=== PATIENT | female | born 1960 | race Two or more races ===

== ENCOUNTER 2017-06-26 09:01 | Emergency (ER) | payer OTHER ==
[~2017-06-26] VITALS: Ht 157.5 cm; Wt 63.5 kg
--- NOTE | 2017-06-26 08:45 | Emergency Room Report ---
History of Present Illness General Source: Patient Present Illness HPI 47YOF with known seizures, compliant on daily Keppra, took today. Patient's daughter states that she only takes it once a day, concerned that the [place] since [place] from [place] might not be: "Real". Patient is his daughter states that she's had multiple tests including CAT scan that "don't show why she's having seizures." States no one has explained to her mother Y. she has seizures. States that CAT scan was normal before. Has a primary care and neurology followup here. It was no trauma after witnessed seizure today Denies urinary incontinence tongue biting Allergies: Coded Allergies: No Known Allergies (Unverified , 06/26/17) Patient History Past Medical History: none, seizures Past Surgical History: none Pertinent Family History: none Social History: Denies: smoking, alcohol use, drug use Now: No Immunizations: UTD Review of Systems All Other Systems: negative except mentioned in HPI Physical Exam Sp02 EP Interpretation: reviewed, normal General Appearance: normal inspection, well appearing, no apparent distress, alert, GCS 15, non-toxic Head: normocephalic, atraumatic Eyes: bilateral eye PERRL, bilateral eye EOMI ENT: normal ENT inspection, hearing grossly normal, normal pharynx, no angioedema, normal voice, TMs + canals normal, uvula midline, moist mucus membranes Neck: normal inspection, full range of motion, supple, thyroid normal, no meningismus, no bony tend Respiratory: normal inspection, lungs clear, normal breath sounds, no rhonchi, no respiratory distress, no retraction, no accessory muscle use, no wheezing, speaking full sentences Cardiovascular #1: regular rate, rhythm, no edema, no JVD, normal capillary refill Gastrointestinal: normal inspection, normal bowel sounds, non tender, soft, no mass, no peritonitis, non-distended, no guarding, no hernia, no pulsatile mass Genitourinary: no CVA tenderness Musculoskeletal: normal inspection, back normal, normal range of motion, no calf tenderness, pelvis stable, Jerry's Sign negative Neurologic: normal inspection, alert, oriented x3, responsive, cotton grader III-XII nml as tested, motor strength/tone normal, cerebellar normal, normal gait, speech normal Psychiatric: normal inspection, judgement/insight normal, mood/affect normal, no suicidal/homicidal ideation, no delusions Skin: normal inspection, normal color, no rash Lymphatic: normal inspection, no adenopathy Medical Decision Making Diagnostic Impression: Primary Impression: Seizure disorder ER Course Vital signs stable, afebrile Atraumatic. No seizure additionally in ER after 2 hours of observation Patient complain I Keppra, no level to check After patient concerns, will prescribe Keppra here i also recommended that she take it twice a day but that she needs followup with neurology in one week max ER course: Patient has remained stable during ED stay. Disposition: Patient is to be discharged to home. Prescriptions given are keppra Patient is instructed to follow up with their primary care doctor within 5 days. Strict return precautions discussed with patient such as fever, chills, worsening/severe pain, nausea, vomiting, which may indicate severe illness. Patient verbalizes understanding and agrees with plan. Please note that this Emergency Department Report was dictated using i.Meterdrafter electrical technology software, occasionally this can lead to erroneous entry secondary to interpretation by the dictation equipment Rhythm Strip Diag. Results EP Interpretation: yes Rate: 56 Rhythm: NSR, no PVC's, no ectopy Status: improved Disposition: HOME, SELF-CARE Scripts Levetiracetam (KEPPRA) 500 Mg Tablet 500 MG ORAL EVERY 12 HOURS for 30 Days, #60 TAB 0 Refills Prov: RENATA CAMACHO M.D. 06/26/17 RENATA CAMACHO M.D. Jun 26, 2017 08:45
[2017-06-26 09:07] VITALS: BP 152/77
[2017-06-26] MEDS ORDERED: KEPPRA500 M4 ORAL ×2 (09:49→11:26)
[2017-06-26 09:59] VITALS: BP 149/76
[2017-06-26 11:37] VITALS: BP 151/80
--- NOTE | 2017-06-30 17:03 | Cardiology Report ---
APPROVED REPORT EKG Measurement Heart [id number] Normal sinus rhythm Normal ECG
== END 2017-06-26 11:42 | disposition home or self-care (01) ==
LOC: EDBD 09:01 → EMR 09:21
DX: G40.909 Epilepsy, unspecified, not intractable, without status epilepticus (principal); Z79.899 Other long term (current) drug therapy
CPT/HCPCS: 93005; 99284

== ENCOUNTER 2018-12-03 21:30 | Emergency (ER) | payer MEDICAID ==
[~2018-12-03] VITALS: Ht 165.1 cm; Wt 63.5 kg
[~2018-12-03 21:30] MED LIST: KEPPRA500 M4 ORAL
--- NOTE | 2018-12-03 21:35 | NUR ---
ED Nurse Note: pt brought in by [facility] from home c/c chest pain x 1 day midsternal area, pt reports it feels like throbbing sensation, pressure like pain, radiating to left right , pt reports nausea and vomiting at home, reports weakness as well. pt states she recently changed her medication 2 days ago. pt AA&ox4, gcs=15, skin warm and dry, resp even and unlabored on RA, -n/v/d at this time, vss, NSR on court recording monitor will cont monitor. safety precautions in place.
[2018-12-03] MEDS ORDERED: VIMPAT10 MG/1 ML PO (21:41)
[2018-12-03 21:51] VITALS: BP 165/85
[2018-12-03 22:08] LABS: EOSINOPHILS % (AUTO) 0.2 % (0.0-3.0); HEMATOCRIT 38.2 % (37.0-47.0); HEMOGLOBIN 12.4 G/DL (12.0-16.0); LYMPHOCYTES % (AUTO) 21.6 % (20.0-45.0); MEAN CORPUSCULAR VOLUME 91 FL (80-99); MONOCYTES % (AUTO) 7.6 % (1.0-10.0); NEUTROPHILS % (AUTO) 69.6 % (45.0-75.0); PLATELET COUNT 319 K/UL (150-450); RED CELL DISTRIBUTION WIDTH 12.6 % (11.6-14.8); WHITE BLOOD COUNT 7.5 K/UL (4.8-10.8)
[2018-12-03 22:21] LABS: ANION GAP 8 mmol/L (5-15); BLOOD UREA NITROGEN 14 mg/dL (7-18); CALCIUM 9.1 MG/DL (8.5-10.1); CARBON DIOXIDE 29 MMOL/L (21-32); CHLORIDE 104 MMOL/L (98-107); CREATININE 0.8 MG/DL (0.55-1.30); SODIUM 141 MMOL/L (136-145)
[2018-12-03 22:34] LABS: ALANINE AMINOTRANSFERASE 18 U/L (12-78); ALBUMIN 3.8 G/DL (3.4-5.0); ALBUMIN/GLOBULIN RATIO 1.1 (1.0-2.7); ALKALINE PHOSPHATASE 98 U/L (46-116); ASPARTATE AMINO TRANSFERASE 30 U/L (15-37); BILIRUBIN,TOTAL 0.5 MG/DL (0.2-1.0); CKMB 1.5 NG/ML (0.0-3.6); CREATINE KINASE 172 U/L (26-308)
[2018-12-03 22:41] LABS: APPEARANCE,URINE CLEAR; BILIRUBIN, URINE NEGATIVE (NEGATIVE); GLUCOSE, URINE (UA) NEGATIVE (NEGATIVE); KETONES,URINE 1+ (NEGATIVE); LEUKOCYTE ESTERASE ,URINE 1+ (NEGATIVE); NITRITE,URINE NEGATIVE (NEGATIVE); PH,URINE 7 (4.5-8.0); PROTEIN,URINE 1+ (NEGATIVE); UROBILINOGEN,URINE 4 MG/DL (0.0-1.0)
[2018-12-03 22:42] LABS: COLOR,URINE YELLOW
[2018-12-03 22:51] VITALS: BP 154/84
[2018-12-03] MEDS ORDERED: Aspirin Baby 81mg ORAL ONE (23:00)
--- NOTE | 2018-12-03 23:00 | NUR ---
ED Nurse Note: pt provided w/ extra blanket, safety precautions in place, vss, NSR on hall monitor, will cont monitor.
--- NOTE | 2018-12-04 00:24 | Emergency Room Report ---
History of Present Illness General Chief Complaint: Chest Pain Source: Patient, EMS Present Illness HPI Patient presents with complaints of chest pain midsternal reports that off-and- on she has been having this discomfort for the past several days however About an hour prior to arrival she was having increased discomfort Denies any vomiting Denies any shortness of breath denies any abdominal pain she has also been feeling generally weak and malaised denies any neck pain or photophobia Denies any obvious cough or recent travel Allergies: Coded Allergies: No Known Allergies (Unverified , 06/26/17) Patient History Past Medical History: see triage record Pertinent Family History: none Reviewed Nursing Documentation: PMH: Agreed; PSxH: Agreed Nursing Documentation-PMH Hx Hypertension: Yes Hx Seizures: Yes Review of Systems All Other Systems: negative except mentioned in HPI Physical Exam Vital Signs Date Time Temp Pulse Resp B/P (MAP) Pulse Ox O2 Delivery O2 Flow Rate FiO2 12/03/18 21:34 99.3 76 16 175/92 (119) 97 Room Air Sp02 EP Interpretation: reviewed, normal General Appearance: well appearing, no apparent distress Head: normocephalic, atraumatic Eyes: bilateral eye PERRL, bilateral eye EOMI ENT: hearing grossly normal, normal pharynx, TMs + canals normal, uvula midline Neck: full range of motion, supple, no meningismus, no bony tend Respiratory: lungs clear, normal breath sounds, no rhonchi, no respiratory distress, no retraction, no accessory muscle use Cardiovascular #1: normal peripheral pulses, regular rate, rhythm, no edema, no gallop, no JVD, no murmur Gastrointestinal: normal bowel sounds, non tender, soft, no mass, no organomegaly, non-distended, no guarding, no hernia, no pulsatile mass, no rebound Genitourinary: no CVA tenderness Musculoskeletal: normal inspection Neurologic: oriented x3, responsive, wringer operator III-XII nml as tested, motor strength/ tone normal, sensory intact Psychiatric: mood/affect normal Skin: no rash Lymphatic: normal inspection, no adenopathy Medical Decision Making Diagnostic Impression: Primary Impression: ACS (acute coronary syndrome) ER Course Patient is a fairly complex patient with multiple differential to consideration including but not limited to cardiac cardiopulmonary and vascular emergencies Patient also reports previous history of seizure activity She was taking a medication sounds to be possibly vinpat, however has been off that medication for several days Reports having seizure as well after this Patient's initial work-up including cardiac enzymes are negative continues to do well and is stable for transfer secondary to insurance purposes Labs Test 12/03/18 21:43 12/03/18 22:30 White Blood Count 7.5 K/UL (4.8-10.8) Red Blood Count 4.20 M/UL (4.20-5.40) Hemoglobin 12.4 G/DL (12.0-16.0) Hematocrit 38.2 % (37.0-47.0) Mean Corpuscular Volume 91 FL (80-99) Mean Corpuscular Hemoglobin 29.4 PG (27.0-31.0) Mean Corpuscular Hemoglobin Concent 32.4 G/DL (32.0-36.0) Red Cell Distribution Width 12.6 % (11.6-14.8) Platelet Count 319 K/UL (150-450) Mean Platelet Volume 5.7 FL (6.5-10.1) Neutrophils (%) (Auto) 69.6 % (45.0-75.0) Lymphocytes (%) (Auto) 21.6 % (20.0-45.0) Monocytes (%) (Auto) 7.6 % (1.0-10.0) Eosinophils (%) (Auto) 0.2 % (0.0-3.0) Basophils (%) (Auto) 1.0 % (0.0-2.0) Sodium Level 141 MMOL/L (136-145) Potassium Level 4.0 MMOL/L (3.5-5.1) Chloride Level 104 MMOL/L (98-107) Carbon Dioxide Level 29 MMOL/L (21-32) Anion Gap 8 mmol/L (5-15) Blood Urea Nitrogen 14 mg/dL (7-18) Creatinine 0.8 MG/DL (0.55-1.30) Estimat Glomerular Filtration Rate > 60 mL/min (>60) Glucose Level 110 MG/DL (74-106) Calcium Level 9.1 MG/DL (8.5-10.1) Total Bilirubin 0.5 MG/DL (0.2-1.0) Aspartate Amino Transf (AST/SGOT) 30 U/L (15-37) Alanine Aminotransferase (ALT/SGPT) 18 U/L (12-78) Alkaline Phosphatase 98 U/L (46-116) Total Creatine Kinase 172 U/L (26-308) Creatine Kinase MB 1.5 NG/ML (0.0-3.6) Creatine Kinase MB Relative Index 0.8 Troponin I 0.000 ng/mL (0.000-0.056) Total Protein 7.4 G/DL (6.4-8.2) Albumin 3.8 G/DL (3.4-5.0) Globulin 3.6 g/dL Albumin/Globulin Ratio 1.1 (1.0-2.7) Lipase 361 U/L (73-393) Urine Color Yellow Urine Appearance Clear Urine pH 7 (4.5-8.0) Urine Specific [place] 1.015 (1.005-1.035) Urine Protein 1+ (NEGATIVE) Urine Glucose (UA) Negative (NEGATIVE) Urine Ketones 1+ (NEGATIVE) Urine Blood 3+ (NEGATIVE) Urine Nitrite Negative (NEGATIVE) Urine Bilirubin Negative (NEGATIVE) Urine Urobilinogen 4 MG/DL (0.0-1.0) Urine Leukocyte Esterase 1+ (NEGATIVE) Urine RBC 2-4 /HPF (0 - 2) Urine WBC 0-2 /HPF (0 - 2) Urine Squamous Epithelial Cells Few /LPF (NONE/OCC) Urine Amorphous Sediment Moderate /LPF (NONE) Urine Bacteria Few /HPF (NONE) Urine Opiates Screen Negative (NEGATIVE) Urine Barbiturates Screen Negative (NEGATIVE) Phencyclidine (PCP) Screen Negative (NEGATIVE) Urine Amphetamines Screen Negative (NEGATIVE) Urine Benzodiazepines Screen Negative (NEGATIVE) Urine Cocaine Screen Negative (NEGATIVE) Urine Marijuana (THC) Screen Negative (NEGATIVE) EKG Diagnostic Results Rate: normal Rhythm: NSR ST Segments: no acute changes Rhythm Strip Diag. Results EP Interpretation: yes Rate: 66 Rhythm: NSR, no PVC's, no ectopy Chest X-Ray Diagnostic Results Chest X-Ray Diagnostic Results : Chest X-Ray Ordered: Yes # of Views/Limited/Complete: 1 View Indication: Chest Pain EP Interpretation: Yes Interpretation: no consolidation, no effusion, no pneumothorax Impression: No acute disease Electronically Signed by: Julieth Gregory DO Last Vital Signs Date Time Temp Pulse Resp B/P (MAP) Pulse Ox O2 Delivery O2 Flow Rate FiO2 12/03/18 22:51 99.4 68 16 154/84 97 Room Air Status: improved Disposition: XFER SHT-TRM HOSP Condition: Improved Referrals: NOT CHOSEN IPA/,REFERRING (PCP) Julieth Gregory DO Dec 04, 2018 00:24
[2018-12-04 00:51] VITALS: BP 125/76
--- NOTE | 2018-12-04 01:00 | NUR ---
ED Nurse Note: PT SLEEPING AT THIS TIME, VSS, NO SX DISTRESS WILL CONT MONITOR.
--- NOTE | 2018-12-04 01:23 | NUR ---
ED Nurse Note: report given to CRISTIAN Stanton from [facility] pending xfr.
--- NOTE | 2018-12-04 01:44 | NUR ---
ED Nurse Note: ambulance at the bedside, ALS transport, pt vss, resp even and unlabored on RA, sinus karen on traffic monitor specialist, iv intact and patent, care endorsed to ambulance staff.
--- NOTE | 2018-12-04 01:44 | NUR ---
ED Nurse Note: SUMMARY OF CARE PROVIDED, ALL BELONGINGS SENT W/ PT.
[2018-12-04 01:45] VITALS: BP 140/85
--- NOTE | 2018-12-04 11:57 | Diagnostic Imaging Report ---
Indication: Chest pain Comparison: None A single view chest radiograph was obtained. Findings: Cardiomediastinal appearance is within normal limits for age. The lungs are clear. Pulmonary vascularity is appropriate. The diaphragmatic contour is smooth and costophrenic angles are sharp. No pleural effusions are identified. The bones are unremarkable. Impression: No acute findings
--- NOTE | 2018-12-05 16:02 | Cardiology Report ---
APPROVED REPORT EKG Measurement Heart [id number] Normal sinus rhythm Normal ECG
== END 2018-12-04 01:45 | disposition short-term general hospital (02) ==
LOC: EDBD 21:30 → EMR 21:43
DX: I24.9 Acute ischemic heart disease, unspecified (principal); I10 Essential (primary) hypertension
CPT/HCPCS: 36415; 71045; 80053; 80307; 81003; 82550; 82553; 83690; 84484; 85025; 93005; 96360; 99284; J7040

== ENCOUNTER 2020-01-12 11:59 | Emergency (ER) | payer MEDICAID ==
[~2020-01-12] VITALS: Ht 167.6 cm; Wt 59.0 kg
[~2020-01-12 11:59] MED LIST changes: -Acetaminophen 500mg (ES) tab ORAL ONE
[2020-01-12] MEDS ORDERED: levETIRAcetam 1,000mg/NS100ml 100 ML IVPB ONE (12:00)
--- NOTE | 2020-01-12 12:11 | Emergency Room Report ---
History of Present Illness General Chief Complaint: Seizure Source: Patient, EMS Present Illness HPI Patient is a 49-year-old female past medical history of seizure disorder not on any medications who was brought in by EMS from a local [employer] after having a seizure. Patient was accompanied by her friend states that she caught her and denies any trauma. Patient states that she does not know why she is here. She states that her last seizure was a long time ago. Patient is very preoccupied about her cell phone and we told her that her friend has it for EMS. Patient denies any headache, chest pain or shortness of breath. She denies any abdominal pain dysuria or hematuria. Patient appears very anxious. Allergies: Coded Allergies: No Known Allergies (Unverified , 01/12/20) COVID-19 Screening Contact w/high risk pt: No Experienced COVID-19 symptoms?: No COVID-19 Testing performed EPIC RADIANT ANALYST: No Patient History Now: No Reviewed Nursing Documentation: PMH: Agreed; PSxH: Agreed Nursing Documentation-PMH Past Medical History: No History, Except For Hx Seizures: Yes Review of Systems All Other Systems: negative except mentioned in HPI Physical Exam Vital Signs Date Time Temp Pulse Resp B/P (MAP) Pulse Ox O2 Delivery O2 Flow Rate FiO2 01/12/20 11:53 98.1 140 20 137/80 (99) 97 Room Air Sp02 EP Interpretation: reviewed, normal General Appearance: no apparent distress, alert, GCS 15, non-toxic Head: normocephalic, atraumatic Eyes: bilateral eye normal inspection, bilateral eye PERRL ENT: hearing grossly normal, normal pharynx, no angioedema, normal voice Neck: full range of motion, supple/symm/no masses Respiratory: chest non-tender, lungs clear, normal breath sounds, speaking full sentences Cardiovascular #1: tachycardia Gastrointestinal: normal bowel sounds, non tender, soft, non-distended, no guarding, no rebound Rectal: deferred Genitourinary: no CVA tenderness Musculoskeletal: normal inspection, normal range of motion, no calf tenderness Neurologic: napkin machine operator III-XII nml as tested, oriented x3 Psychiatric: no suicidal/homicidal ideation, anxious Skin: no rash Lymphatic: no adenopathy Medical Decision Making Diagnostic Impression: Primary Impression: Seizure disorder ER Course Patient presents after seizure. Patient has history of seizure disorder but is not on any medication. Patient given 1 g of IV Keppra and 1 L of IV fluids. Patient is awake alert and oriented. She is ambulating without difficulty. Her heart rate has improved and is currently in the 80s. Patient will be discharged with a prescription for Keppra 500 mg p.o. twice daily for 1 month. I have advised her to follow-up with a neurologist and told her that she cannot drive until she is cleared by a neurologist. DMV reporting form has been filled out. After discussing risks and benefits of further diagnostics, treatment plans, as well as indications for and risks of admission, the patient is agreeable to being discharged home. I have explained that their evaluation and treatment in the emergency department today is an important step towards them achieving better health but that their evaluation today is not intended to replace further evaluation and treatment by a physician in their local clinic. I have explained that while the current findings suggest no immediate life threatening emergency they will require further evaluation and treatment by a physician of their choice in their area. They understand that it will be necessary for them to review the final reports of their ED visit with their clinic physician. We have reviewed indications for return to the Emergency Department. I have explained that additional time may need to pass and/or additional testing as an outpatient may be necessary before a definitive diagnosis can be made. They tell me they are willing to follow up as instructed within the timeframe I recommend. They appear to understand what we discussed. Additionally they understand that if they are unable to be seen by an outpatient physician they are welcome, and in fact should, return to the Emergency Department for a repeat evaluation. The patient is stable at time of discharge. EKG Diagnostic Results EKG Time: 12:05 EP Interpretation: Kat Hickey MD Rate: tachycardiac - 107 bpm Rhythm: other - Sinus tachycardia ST Segments: no acute changes ASA given to the pt in ED: No Rhythm Strip Diag. Results Rhythm Strip Time: 12:10 EP Interpretation: yes - Kat Hickey MD Rate: 110 bpm Rhythm: no PVC's, no ectopy, other - Sinus tachycardia Last Vital Signs Date Time Temp Pulse Resp B/P (MAP) Pulse Ox O2 Delivery O2 Flow Rate FiO2 01/12/20 11:53 98.1 140 20 137/80 (99) 97 Room Air Disposition: HOME, SELF-CARE Condition: Stable Scripts Levetiracetam (KEPPRA) 500 Mg Tablet 500 MG ORAL EVERY 12 HOURS, #60 TAB 0 Refills Prov: Kat Hickey M.D. 01/12/20 Additional Instructions: The patient was provided with discharge instructions, notified to follow-up with a primary care doctor and or specialist in the next 24-48 hours, and to return to the ED if they have worsening of their symptoms. Please note that this report is being documented using [employer] technology. This can lead to erroneous entry secondary to incorrect interpretation by the dictating instrument. Kat Hickey M.D. Jan 12, 2020 12:11
[2020-01-12 12:23] VITALS: BP 137/80
--- NOTE | 2020-01-12 12:27 | NUR ---
ED Nurse Note:pt. was BIBA from the store where she had seizure today, pt. is A/Ox3 ambulatory blood and urine sent to labs and IV meds and fluids given ,rail was paded, pt. had CT scan head done
[2020-01-12 12:42] LABS: APPEARANCE,URINE CLEAR; BILIRUBIN, URINE NEGATIVE (NEGATIVE); COLOR,URINE PALE YELLOW; GLUCOSE, URINE (UA) NEGATIVE (NEGATIVE); KETONES,URINE NEGATIVE (NEGATIVE); LEUKOCYTE ESTERASE ,URINE NEGATIVE (NEGATIVE); NITRITE,URINE NEGATIVE (NEGATIVE); PH,URINE 6.5 (4.5-8.0); PROTEIN,URINE 3+ (NEGATIVE); UROBILINOGEN,URINE NORMAL MG/DL (0.0-1.0)
[2020-01-12 12:43] LABS: HEMATOCRIT 42.8 % (37.0-47.0); HEMOGLOBIN 13.2 G/DL (12.0-16.0); MEAN CORPUSCULAR VOLUME 91 FL (80-99); PLATELET COUNT 304 K/UL (150-450); RED BLOOD COUNT 4.71 M/UL (4.20-5.40); RED CELL DISTRIBUTION WIDTH 14.1 % (11.6-14.8); WHITE BLOOD COUNT 10.3 K/UL (4.8-10.8)
[2020-01-12 12:58] LABS: ANION GAP 14 mmol/L (5-15); BLOOD UREA NITROGEN 14 mg/dL (7-18); CALCIUM 8.8 MG/DL (8.5-10.1); CARBON DIOXIDE 22 MMOL/L (21-32); CHLORIDE 99 MMOL/L (98-107); CREATININE 0.8 MG/DL (0.55-1.30); POTASSIUM 4.6 MMOL/L (3.5-5.1); SODIUM 135 MMOL/L (136-145)
[2020-01-12 13:11] LABS: ALANINE AMINOTRANSFERASE 17 U/L (12-78); ALBUMIN 3.8 G/DL (3.4-5.0); ALBUMIN/GLOBULIN RATIO 0.9 (1.0-2.7); ALKALINE PHOSPHATASE 132 U/L (46-116); ASPARTATE AMINO TRANSFERASE 27 U/L (15-37); BILIRUBIN,TOTAL 0.3 MG/DL (0.2-1.0)
--- NOTE | 2020-01-12 13:37 | Diagnostic Imaging Report ---
Indications: Seizures Technique: Spiral acquisitions obtained through the brain. Angled axial and coronal 5 x 5 mm slices were reconstructed. Total dose length product 965 mGycm. CTDI vol(s) 53 mGy. Dose reduction achieved using automated exposure control Comparison: None. Findings: No acute intracranial hemorrhage or edema. No mass effect or midline shift. Normal clements-white differentiation. Visualized orbits and sinuses are unremarkable. The mastoids are clear. The calvarium is intact. Impression: Negative The CT scanner at [facility] is accredited by the [employer] and the scans are performed using protocols designed to limit radiation exposure to as low as reasonably achievable to attain images of sufficient resolution adequate for diagnostic evaluation.
[2020-01-12] MEDS ORDERED: KEPPRA500 M4 ORAL ×2 (13:38→14:20)
[2020-01-12 14:38] VITALS: BP 136/78
--- NOTE | 2020-01-12 14:38 | NUR ---
ER DISCHARGE NOTE: Patient is cleared to be discharged per ERMD, pt is aox4, on room air, with stable vital signs. pt was given dc and prescription instructions, pt was able to verbalize understanding, pt id band and iv site removed without complications. pt is able to ambulate with steady gait. pt took all belongings.
== END 2020-01-12 14:38 | disposition home or self-care (01) ==
LOC: EDBD 11:59 → EMR 13:30 → MERGE 13:30 → EMR 14:38
DX: G40.909 Epilepsy, unspecified, not intractable, without status epilepticus (principal); R00.0 Tachycardia, unspecified
CPT/HCPCS: 36415; 70450; 80053; 80307; 81003; 81025; 83735; 84439; 84443; 85007; 85025; 93005; 96361; 96374; J1953; J7030; Z7502; 99284

== ENCOUNTER → 2020-01-12 | Emergency (ER) | payer MEDICAID ==
[~2020-01-12] VITALS: Ht 162.6 cm; Wt 72.6 kg
[~2020-01-12] MED LIST changes: +Acetaminophen 500mg (ES) tab ORAL ONE; +VIMPAT10 MG/1 ML PO
--- NOTE | 2020-01-12 16:00 | NUR ---
ED Nurse Note: Pt ambulate dto c/o dizziness, headache when she stands up; reports no N/V/D. Reports no cough. Pt is AOx4, VSS, on RA. placed on bed, safety measures in placed.
--- NOTE | 2020-01-12 16:01 | NUR ---
ED Nurse Note: Roomed patient to 4. No facial droop. No arm or leg drift noted. Addendum: 01/12/20 at 1602 by ISAIAH Report given to CRISTIAN Smith.
--- NOTE | 2020-01-12 16:23 | Emergency Room Report ---
History of Present Illness General Chief Complaint: Dizziness Source: Patient Present Illness HPI 59-year-old female here because "I have epilepsy." Patient was just seen in the emergency department today after having a seizure. She received an extensive work-up which was completely negative including a negative CT head. She was given Keppra IV and then discharged with a prescription for Keppra 500 mg p.o. twice daily. Patient was in the waiting room and then rechecked in as a patient. When asked the patient why she was a patient again in the emergency department she said "I did not realize that I was okay to go home." Patient's daughter is in the waiting room and this was explained to the patient's daughter as well. At this time the patient denies any headaches, vision changes , focal numbness or weakness, syncope, seizure, chest pain, palpitation, shortness of breath, back pain, abdominal pain, nausea, vomiting, diarrhea, dysuria. Allergies: Coded Allergies: No Known Allergies (Unverified , 01/12/20) COVID-19 Screening Contact w/high risk pt: No Experienced COVID-19 symptoms?: Yes COVID-19 Testing performed WATERSHED PROGRAM MANAGER: No Nursing Documentation-[facility] Past Medical History: No History, Except For Hx Cardiac Problems: No Hx Hypertension: No Hx Pacemaker: No Hx Asthma: No Hx COPD: No Hx Diabetes: No Hx Cancer: No Hx Gastrointestinal Problems: No Hx Dialysis: No History Of Psychiatric Problem: No Hx Neurological Problems: No Hx Cerebrovascular Accident: No Hx Seizures: Yes Review of Systems All Other Systems: negative except mentioned in HPI Physical Exam Vital Signs Date Time Temp Pulse Resp B/P (MAP) Pulse Ox O2 Delivery O2 Flow Rate FiO2 01/12/20 15:31 101.8 92 16 133/80 (97) 95 Room Air Sp02 EP Interpretation: reviewed, normal General Appearance: no apparent distress, alert, GCS 15, non-toxic Head: normocephalic, atraumatic Eyes: bilateral eye normal inspection, bilateral eye PERRL ENT: hearing grossly normal, normal pharynx, no angioedema, normal voice Neck: full range of motion, supple/symm/no masses Respiratory: chest non-tender, lungs clear, normal breath sounds, speaking full sentences Cardiovascular #1: regular rate, rhythm, no edema Cardiovascular #2: 2+ carotid (R), 2+ carotid (L), 2+ radial (R), 2+ radial (L) , 2+ dorsalis pedis (R), 2+ dorsalis pedis (L) Gastrointestinal: normal bowel sounds, non tender, soft, non-distended, no guarding, no rebound Rectal: deferred Genitourinary: normal inspection, no CVA tenderness Musculoskeletal: back normal, normal range of motion, calf tenderness, gait/ station normal, non-tender Neurologic: alert, motor strength/tone normal, oriented x3, sensory intact, responsive, speech normal Psychiatric: judgement/insight normal, memory normal, mood/affect normal, no suicidal/homicidal ideation Reflexes: 3+ bicep (R), 3+ bicep (L), 3+ tricep (R), 3+ tricep (L), 3+ knee (R) , 3+ knee (L) Lymphatic: no adenopathy Medical Decision Making Diagnostic Impression: Primary Impression: Epilepsy ER Course 59-year-old female here with seizure disorder. Patient was just seen in the emergency department after suffering a seizure earlier today where she received an extensive work-up that was completely negative. She was given antiepileptic medication IV and then discharged with a prescription for Keppra p.o. twice daily. She said that she did not understand that she was discharged and that she was okay to go home and to follow-up with her neurologist. I explained this to the patient using a diplomatic interpreter/translator. She expressed understanding and was discharged. Last Vital Signs Date Time Temp Pulse Resp B/P (MAP) Pulse Ox O2 Delivery O2 Flow Rate FiO2 01/12/20 16:01 100.9 01/12/20 15:31 92 16 133/80 (97) 95 Room Air Papa Ng M.D. Jan 12, 2020 16:23
--- NOTE | 2020-01-12 16:43 | NUR ---
ED Nurse Note: Pt stood up, denies any feeling of pain; headache nor dizziness now. ermd aware.
[2020-01-12 17:00] VITALS: BP 132/78
--- NOTE | 2020-01-12 17:00 | NUR ---
ER DISCHARGE NOTE: Patient is cleared to be discharged per ERMD, pt is aox4, on room air, with stable vital signs. pt was given dc and prescription instructions, pt was able to verbalize understanding, pt id band removed. pt is able to ambulate with steady gait. pt took all belongings. Pt left ED accompanied by daughter.
== END | disposition home or self-care (01) ==
LOC: MERGE 16:50 → EMR 16:50
DX: G40.909 Epilepsy, unspecified, not intractable, without status epilepticus (principal)
CPT/HCPCS: 99281

== ENCOUNTER 2020-02-22 14:06 | Emergency (ER) | payer MEDICAID ==
[~2020-02-22] VITALS: Ht 165.1 cm; Wt 65.8 kg
[2020-02-22] MEDS ORDERED: levETIRAcetam 500mg/NS100ml 100 ML IVPB ONE (14:15)
[2020-02-22 14:54] LABS: BASOPHILS % (AUTO) 1.2 % (0.0-2.0); EOSINOPHILS % (AUTO) 0.1 % (0.0-3.0); HEMATOCRIT 40.8 % (37.0-47.0); LYMPHOCYTES % (AUTO) 11.3 % (20.0-45.0); MEAN CORPUSCULAR VOLUME 85 FL (80-99); MONOCYTES % (AUTO) 3.1 % (1.0-10.0); NEUTROPHILS % (AUTO) 84.4 % (45.0-75.0); PLATELET COUNT 285 K/UL (150-450); RED CELL DISTRIBUTION WIDTH 13.6 % (11.6-14.8); WHITE BLOOD COUNT 8.2 K/UL (4.8-10.8)
[2020-02-22 15:07] VITALS: BP 142/94
[2020-02-22 15:10] LABS: ANION GAP 12 mmol/L (5-15); BLOOD UREA NITROGEN 10 mg/dL (7-18); CALCIUM 8.8 MG/DL (8.5-10.1); CARBON DIOXIDE 25 MMOL/L (21-32); CHLORIDE 105 MMOL/L (98-107); CREATININE 0.8 MG/DL (0.55-1.30); SODIUM 142 MMOL/L (136-145)
--- NOTE | 2020-02-22 15:14 | Diagnostic Imaging Report ---
Indications: Seizures Technique: Spiral acquisitions obtained through the brain. Angled axial and coronal 5 x 5 mm slices were reconstructed. Total dose length product 992 mGycm. CTDI vol(s) 53 mGy. Dose reduction achieved using automated exposure control Comparison: None. Findings: No acute intracranial hemorrhage or edema. No mass effect nor midline shift. Normal clements-white differentiation. Normal size ventricles and extra axial CSF spaces. There is minimal right ethmoid sinus disease. The mastoids are clear. The visualized orbits are unremarkable Impression: Essentially unremarkable exam Incidental finding of minimal sinus disease The CT scanner at [facility] is accredited by the [employer] and the scans are performed using protocols designed to limit radiation exposure to as low as reasonably achievable to attain images of sufficient resolution adequate for diagnostic evaluation.
[2020-02-22 15:15] LABS: ALANINE AMINOTRANSFERASE 20 U/L (12-78); ALBUMIN 3.7 G/DL (3.4-5.0); ALBUMIN/GLOBULIN RATIO 1.2 (1.0-2.7); ALKALINE PHOSPHATASE 112 U/L (46-116); ASPARTATE AMINO TRANSFERASE 26 U/L (15-37); BILIRUBIN,TOTAL 0.3 MG/DL (0.2-1.0); CREATINE KINASE 108 U/L (26-308)
--- NOTE | 2020-02-22 15:19 | Emergency Room Report ---
History of Present Illness General Chief Complaint: Seizure Source: Patient Present Illness HPI 60-year-old female with history of tonic-clonic seizures currently on Keppra brought in from home due to seizure activity and hitting her head and face. Patient was take her dose this morning. Appears to be dizzy. Patient does not have any slurred speech. Denies any weakness. Denies any chest pain or dizziness prior to seizure activity. Has been having seizures for many years. Reports that it was witnessed and did not lose any continence. 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 Also reported that the neighbor started screaming. I explained to her that in the past couple months is been the third time the patient has been here for seizure activity. Caregiver notifies me that patient has an upcoming appointment with neurologist this coming . I advised that patient needs to be reevaluated, may be new MRI or EEG as well as evaluat ion of the dosing of the medication that she is on. Also needs to be observed at all times specially going to the restroom or moving around as seizure activity can be happening at any time of the day anyplace and can cause complications. Daughter agrees with this assessment. Patient is neurovascular intact. No unilateral generalized weakness noted.Denies chest pain, shortness o f breath, headache and dizziness, cough and congestion Allergies: Coded Allergies: No Known Allergies (Unverified , 06/26/17) COVID-19 Screening Contact w/high risk pt: No Experienced COVID-19 symptoms?: No COVID-19 Testing performed BARREL CUTTER: No Patient History Past Medical History: see triage record Past Surgical History: none Pertinent Family History: none Last Menstrual Period: na Now: No Immunizations: UTD Reviewed Nursing Documentation: PMH: Agreed; PSxH: Agreed Nursing Documentation-PMH Past Medical History: No History, Except For Hx Cardiac Problems: No Hx Hypertension: Yes Hx Pacemaker: No Hx Asthma: No Hx COPD: No Hx Diabetes: No Hx Cancer: No Hx Gastrointestinal Problems: No Hx Dialysis: No Hx Neurological Problems: No Hx Cerebrovascular Accident: No Hx Seizures: Yes Review of Systems All Other Systems: negative except mentioned in HPI Physical Exam Vital Signs Date Time Temp Pulse Resp B/P (MAP) Pulse Ox O2 Delivery O2 Flow Rate FiO2 02/22/20 14:01 98.8 109 18 162/94 (116) 98 Room Air Sp02 EP Interpretation: reviewed, normal General Appearance: alert, non-toxic, mild distress Head: normocephalic, atraumatic Eyes: bilateral eye normal inspection, bilateral eye PERRL ENT: hearing grossly normal, normal pharynx, no angioedema, normal voice Neck: full range of motion, supple, no bony tend, supple/symm/no masses Respiratory: chest non-tender, lungs clear, normal breath sounds, no rhonchi, speaking full sentences Cardiovascular #1: regular rate, rhythm, no edema, no murmur Cardiovascular #2: 2+ carotid (R), 2+ carotid (L), 2+ radial (R), 2+ radial (L), 2+ dorsalis pedis (R), 2+ dorsalis pedis (L) Gastrointestinal: non tender, soft, no mass Genitourinary: no CVA tenderness Musculoskeletal: back normal, normal range of motion, no calf tenderness, non- tender, other - Confusion noted periorbital and right-sided frontal Neurologic: alert, motor strength/tone normal, oriented x3, sensory intact, responsive, speech normal Skin: no rash, other - Minor ecchymosis left upper eyelid and right sided frontal lobe Lymphatic: no adenopathy Medical Decision Making PA Attestation All my diagnosis and treatment plans were reviewed ad discussed with my supervising physician Dr. Gaxiola Diagnostic Impression: Primary Impression: Seizure disorder Additional Impression: Head contusion ER Course 60-year-old female with history of tonic-clonic seizures currently on Keppra brought in from home due to seizure activity and hitting her head and face. Patient was take her dose this morning. Appears to be dizzy. Patient does not have any slurred speech. Denies any weakness. Denies any chest pain or dizziness prior to seizure activity. Has been having seizures for many years. Reports that it was witnessed and did not lose any continence. 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 Also reported that the neighbor started screaming. I explained to her that in the past couple months is been the third time the patient has been here for seizure activity. Caregiver notifies me that patient has an upcoming appointment with neurologist this coming . I advised that patient needs to be reevaluated, may be new MRI or EEG as well as evaluation of the dosing of the medication that she is on. Also needs to be observed at all times specially going to the restroom or moving around as seizure activity can be happening at any time of the day anyplace and can cause complications. Daughter agrees with this assessment. Patient is neurovascular intact. No unilateral generalized weakness noted. Denies chest pain, shortness of breath, headache and dizziness, cough and congestion Ddx considered but are not limited to: cerebral hematoma, concussion, skull fracture, head contusion Vital signs: are WNL, pt. is afebrile H&PE are most consistent with: Head contusion, seizure ORDERS: head CT no contrast, seizure order set, Keppra ED INTERVENTIONS: NS bolus, Keppra DISCHARGE: At this time pt. is stable for d/c to home. Will provide printed patient care instructions, and any necessary prescriptions. Care plan and follow up instructions have been discussed with the patient prior to discharge. Patient take medication as directed, follow primary care provider and neurologist, for symptom return to the emergency room. 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 EKG Diagnostic Results Rate: normal Rhythm: NSR ST Segments: no acute changes Other Impression No acute ST changes Chest X-Ray Diagnostic Results Chest X-Ray Diagnostic Results : Chest X-Ray Ordered: Yes # of Views/Limited/Complete: 1 View Indication: Other EP Interpretation: Yes PA Xray: Interpretation reviewed, by supervising MD, and agrees with findings. Interpretation: no consolidation, no effusion, no pneumothorax Impression: No acute disease Electronically Signed by: Jorge Russ PA-C CT/MRI/US Diagnostic Results CT/MRI/US Diagnostic Results : Imaging Test Ordered: Head CT no contrast Impression No intracranial bleed, no skull fracture Last Vital Signs Date Time Temp Pulse Resp B/P (MAP) Pulse Ox O2 Delivery O2 Flow Rate FiO2 02/22/20 14:12 90 16 Room Air 02/22/20 14:01 98.8 162/94 (116) 98 Disposition: HOME, SELF-CARE Condition: Stable Patient Instructions: Facial or Scalp Contusion, [id number], Seizure, Adult Jorge Matthews Feb 22, 2020 15:19
[2020-02-22 16:09] LABS: APPEARANCE,URINE CLEAR; BILIRUBIN, URINE NEGATIVE (NEGATIVE); COLOR,URINE PALE YELLOW; GLUCOSE, URINE (UA) NEGATIVE (NEGATIVE); KETONES,URINE NEGATIVE (NEGATIVE); LEUKOCYTE ESTERASE ,URINE NEGATIVE (NEGATIVE); NITRITE,URINE NEGATIVE (NEGATIVE); PH,URINE 7 (4.5-8.0); PROTEIN,URINE 2+ (NEGATIVE); UROBILINOGEN,URINE NORMAL MG/DL (0.0-1.0)
[2020-02-22 16:49] VITALS: BP 136/82
--- NOTE | 2020-02-22 17:56 | Diagnostic Imaging Report ---
Indication: Chest pain Technique: One view of the chest Comparison: 12/03/2018 Findings: Lungs and pleural spaces are clear. Heart size is normal. No significant change Impression: No acute process
--- NOTE | 2020-02-23 13:45 | Cardiology Report ---
APPROVED REPORT EKG Measurement Heart [id number] <Conclusion> Normal sinus rhythm Possible Left atrial enlargement Borderline ECG
== END 2020-02-22 16:58 | disposition home or self-care (01) ==
LOC: EDBD 14:06 → EMR 15:42
DX: G40.909 Epilepsy, unspecified, not intractable, without status epilepticus (principal); S00.93XA Contusion of unspecified part of head, initial encounter; S00.12XA Contusion of left eyelid and periocular area, initial encounter; I10 Essential (primary) hypertension; W19.XXXA Unspecified fall, initial encounter; Y92.9 Unspecified place or not applicable
CPT/HCPCS: 36415; 70450; 71045; 80053; 80307; 81003; 82550; 84484; 85025; 93005; 96361; 96374; G0480; J1953; J7030; Z7502; 99284